=== PATIENT | male | born 1985 | race African-American/Black ===

== ENCOUNTER 2016-12-27 11:01 | Emergency (ER) | payer OTHER ==
[~2016-12-27] VITALS: Ht 167.6 cm; Wt 74.4 kg
[2016-12-27 12:02] VITALS: BP 136/71
== END 2016-12-27 12:02 | disposition home or self-care (01) ==
LOC: ED 11:01
DX: H10.9 Unspecified conjunctivitis (principal); R05 Cough; J00 Acute nasopharyngitis [common cold]; R06.7 Sneezing; R09.89 Other specified symptoms and signs involving the circulatory and respiratory systems